=== PATIENT | female | born 2000 | race Caucasian/White ===

== ENCOUNTER → 2023-03-29 | Outpatient (CLI) | payer OTHER ==
[~2023-03-29] MED LIST: ISOVUE-370 76% 100ML VIAL As Ordered ONE
== END ==
LOC: M RAD 13:45
PROVIDERS: ATTEND Otolaryngology
DX: R59.0 Localized enlarged lymph nodes (principal)
CPT/HCPCS: 70491; Q9967

== ENCOUNTER 2024-07-20 07:16 | Day surgery (SDC) | payer OTHER ==
[~2024-07-20] VITALS: Ht 160 cm; Wt 53.0 kg
[~2024-07-20 07:16] MED LIST changes: +DEPO150I IM; -ISOVUE-370 76% 100ML VIAL As Ordered ONE; +LEXA1TAB PO
[2024-07-20] MEDS ORDERED: LR 1,000 ML IV SCH ×2 (07:40→09:40)
[2024-07-20] MEDS ORDERED: ONDANSETRON 4MG 2ML VIAL As Ordered ONE (07:55)
[2024-07-20] MEDS ORDERED: propofoL 200 MG/20 ML VIAL As Ordered ONE (07:55)
[2024-07-20] MEDS ORDERED: SUGAMMADEX SODIUM 500 MG/5 ML VIAL (BRIDION) As Ordered ONE (07:55)
[2024-07-20] MEDS ORDERED: LIDOCAINE 2% 100MG/5ML SDV (FOR ANES.) As Ordered ONE (07:55)
[2024-07-20] MEDS ORDERED: ROCURONIUM BROMIDE 50MG/5ML VIAL As Ordered ONE (07:55)
[2024-07-20] MEDS ORDERED: MIDAZOLAM INJ 2MG/2ML VIAL As Ordered ONE (07:59)
[2024-07-20] MEDS ORDERED: fentaNYL 100 MCG/2 ML INJECTION As Ordered ONE (08:00)
[2024-07-20] MEDS: AMPICILLIN SOD/SULBACTAM SOD 3 GM in SODIUM CHLORIDE 0.9% 100ML ADD 100 ML IV ONE (08:56)
[2024-07-20] MEDS: OXYMETAZOLINE 0.05% NASAL SPRAY As Ordered ONE (08:56)
[2024-07-20] MEDS ORDERED: ACETAMINOPHEN 1000MG/100ML IV BAG As Ordered ONE (09:07)
[2024-07-20] MEDS: CHLORHEXIDINE GLUCONATE 0.12 % 15ML UDC (PERIDEX ORAL RINSE) As Ordered ONE (09:26)
[2024-07-20] MEDS ORDERED: ESMOLOL INJ 100MG/10ML VIAL As Ordered ONE (09:29)
[2024-07-20] MEDS ORDERED: fentaNYL 100 MCG/2 ML INJECTION IV PRN (09:40)
[2024-07-20] MEDS ORDERED: ONDANSETRON 4MG 2ML VIAL IV PRN (09:40)
[2024-07-20] MEDS ORDERED: HYDROMORPHONE HCL 0.5 MG/ 0.5 ML SYRINGE IV PRN (09:40)
[2024-07-20] MEDS ORDERED: oxyCODONE 5MG TAB PO PRN (09:40)
[2024-07-20] MEDS: BUPivacaine LIPOSOME/PF 266MG 20ML VIAL (13.3MG/ML)(EXPAREL) As Ordered ONE (09:44)
[2024-07-20] MEDS: LIDOCAINE 2% W/ EPINEPHRINE 1.7 ML DENTAL INJ As Ordered ONE (09:46)
[2024-07-20] MEDS: BACITRACIN OINTMENT 30GM TUBE As Ordered ONE (09:47)
[2024-07-20] MEDS ORDERED: MEPERIDINE 25 MG/ML 1ML VIAL As Ordered ONE (09:56)
[2024-07-20] MEDS: MEPERIDINE 25 MG/ML 1ML VIAL IV PRN (09:58)
[2024-07-20 10:48] VITALS: BP 121/70; TEMP 97.5; O2SAT 99
== END 2024-07-20 10:54 | disposition home or self-care (01) ==
LOC: M SDC 07:16
PROVIDERS: ATTEND Dentist
DX: K02.9 Dental caries, unspecified (principal); F41.9 Anxiety disorder, unspecified; F32.A Depression, unspecified; R51.9 Headache, unspecified; Z79.899 Other long term (current) drug therapy
CPT/HCPCS: 81025; 88300; D7210; D9223; J0131; J0295; J0666; J1100; J1805; J2175; J2250; J2405; J3010